=== PATIENT | female | born 1940 | race Caucasian/White ===

== ENCOUNTER 2019-06-19 05:03 | Inpatient (IN) ==
[2019-06-19] MEDS ORDERED: *HR* Promethazine 25 MG/ML VIAL IVP PRN (07:38)
[2019-06-19] MEDS ORDERED: Naloxone 0.4 MG/ML INJ IVP PRN (07:38)
[2019-06-19 16:55] LABS: Basophils % 0.1 %; Hematocrit 31.5 % (35.3-44.9); Hemoglobin 11.1 g/dL (11.5-15.4); Immature Granulocytes % 0.5 % (0-4); Lymphocytes # 1.2 K/mcL (0.6-4.6); Lymphocytes % 7.1 %; Mean Corpuscular HGB Conc 35.2 g/dL (31.6-35.5); Mean Corpuscular Hemoglobin 30.1 pg (28.0-33.3); Mean Corpuscular Volume 85.4 fL (83.0-100.0); Mean Platelet Volume 10.5 fL (9.4-12.4); Platelet Count 133 K/mcL (140-400); Red Blood Count 3.69 M/mcL (3.82-4.97); Segmented Neutrophils % 86.3 %
[2019-06-19 16:57] LABS: Neutrophils # 14.7 K/mcL (1.6-8.9)
[2019-06-19] MEDS: Pantoprazole 40 MG VIAL IVP SCH (17:16)
[2019-06-19 20:03] LABS: BUN/Creatinine Ratio 17 (6-26); Blood Urea Nitrogen 9 mg/dL (8-23); Calcium 8.5 mg/dL (8.6-10.3); Carbon Dioxide 26 mEq/L (23-29); Chloride 99 mEq/L (98-107); Glucose 111 mg/dL (70-105); Magnesium 1.4 mg/dL (1.6-2.6); Osmolality,Calculated 293 (280-300); Phosphorous 2.3 mg/dL (2.7-4.5); Potassium 3.3 mEq/L (3.5-5.1); Sodium 142 mEq/L (136-145); eGFR For African Americans > 60 (> 60); eGFR For Non-African Americans > 60 (> 60)
[2019-06-20] MEDS: Pantoprazole 40 MG VIAL IVP SCH ×2 (06:22→15:41)
[2019-06-20] MEDS ORDERED: *HR* Propofol 200 MG/20 ML VIAL IVP ONE (07:22)
[2019-06-20] MEDS ORDERED: Lidocaine -MPF 2% 2 ML VIAL ONE (07:22)
[2019-06-20 07:40] LABS: Hematocrit 29.4 % (35.3-44.9); Hemoglobin 9.9 g/dL (11.5-15.4)
[2019-06-20 07:55] LABS: BUN/Creatinine Ratio 21 (6-26); Blood Urea Nitrogen 9 mg/dL (8-23); Calcium 8.6 mg/dL (8.6-10.3); Carbon Dioxide 32 mEq/L (23-29); Chloride 99 mEq/L (98-107); Potassium 2.7 mEq/L (3.5-5.1); Sodium 143 mEq/L (136-145); eGFR For African Americans > 60 (> 60); eGFR For Non-African Americans > 60 (> 60)
[2019-06-20 08:37] LABS: Glucose 114 mg/dL (70-105); Osmolality,Calculated 296 (280-300)
[2019-06-20] MEDS ORDERED: *HR* EPINEPHrine 1 MG/10 ML SYRINGE INTRATRACH PRN (09:16)
[2019-06-20] MEDS ORDERED: *HR* EPINEPHrine 1 MG/10 ML SYRINGE ONE (09:22)
[2019-06-20] MEDS ORDERED: *HR* HYDROcodone/Acet 10/325 mg TABLET PO PRN ×2 (13:14→13:20)
[2019-06-20] MEDS: Gabapentin 400 MG CAPSULE PO SCH ×3 (15:41→21:56)
[2019-06-20 16:56] LABS: Hematocrit 30.3 % (35.3-44.9); Hemoglobin 10.2 g/dL (11.5-15.4)
[2019-06-20] MEDS: Famotidine 20 MG TABLET PO SCH (21:56)
[2019-06-21] MEDS: Pantoprazole 40 MG VIAL IVP SCH ×2 (05:25→17:47)
[2019-06-21 07:32] LABS: Basophils % 0.1 %; Eosinophils % 0.1 %; Hematocrit 29.4 % (35.3-44.9); Hemoglobin 10.2 g/dL (11.5-15.4); Immature Granulocytes % 0.7 % (0-4); Lymphocytes # 1.3 K/mcL (0.6-4.6); Lymphocytes % 14.3 %; Mean Corpuscular HGB Conc 34.7 g/dL (31.6-35.5); Mean Corpuscular Hemoglobin 30.4 pg (28.0-33.3); Mean Corpuscular Volume 87.8 fL (83.0-100.0); Mean Platelet Volume 10.6 fL (9.4-12.4); Monocytes # 0.6 K/mcL (0.0-1.3); Monocytes % 6.2 %; Neutrophils # 7.1 K/mcL (1.6-8.9); Platelet Count 110 K/mcL (140-400); Red Blood Count 3.35 M/mcL (3.82-4.97); Red Cell Distribution Width 13.8 % (11.5-14.5); Segmented Neutrophils % 78.6 %; White Blood Count 9.1 K/mcL (4.3-11.1)
[2019-06-21 07:53] LABS: BUN/Creatinine Ratio 18 (6-26); Blood Urea Nitrogen 7 mg/dL (8-23); Calcium 8.5 mg/dL (8.6-10.3); Carbon Dioxide 30 mEq/L (23-29); Chloride 98 mEq/L (98-107); Glucose 109 mg/dL (70-105); Osmolality,Calculated 291 (280-300); Sodium 141 mEq/L (136-145); eGFR For African Americans > 60 (> 60); eGFR For Non-African Americans > 60 (> 60)
[2019-06-21] MEDS ORDERED: Potassium Chloride Elixir 20 MEQ/15 ML UDC PO ONE (08:06)
[2019-06-21] MEDS: *HR* Acetylcysteine 20% 600 MG/3 ML ORAL SYRINGE PO SCH (08:48)
[2019-06-21] MEDS: FLUoxetine HCl 10 MG CAPSULE PO SCH (08:48)
[2019-06-21] MEDS: Gabapentin 400 MG CAPSULE PO SCH ×3 (08:48→20:31)
[2019-06-21] MEDS ORDERED: GI Cocktail 40 ML EACH PO ONE (11:47)
[2019-06-21 14:50] LABS: BUN/Creatinine Ratio 13 (6-26); Blood Urea Nitrogen 6 mg/dL (8-23); Calcium 8.7 mg/dL (8.6-10.3); Carbon Dioxide 30 mEq/L (23-29); Chloride 99 mEq/L (98-107); Glucose 101 mg/dL (70-105); Osmolality,Calculated 292 (280-300); Potassium 3.1 mEq/L (3.5-5.1); Sodium 142 mEq/L (136-145); eGFR For African Americans > 60 (> 60); eGFR For Non-African Americans > 60 (> 60)
[2019-06-21] MEDS: Famotidine 20 MG TABLET PO SCH (20:31)
[2019-06-21] MEDS ORDERED: Haloperidol Lactate 5 MG/ML VIAL IVP ONE (20:51)
[2019-06-22] MEDS: Pantoprazole 40 MG VIAL IVP SCH (06:20)
[2019-06-22 06:31] LABS: Hematocrit 30.5 % (35.3-44.9); Hemoglobin 10.4 g/dL (11.5-15.4)
[2019-06-22 06:55] LABS: BUN/Creatinine Ratio 15 (6-26); Blood Urea Nitrogen 6 mg/dL (8-23); Calcium 8.4 mg/dL (8.6-10.3); Carbon Dioxide 29 mEq/L (23-29); Chloride 102 mEq/L (98-107); Glucose 99 mg/dL (70-105); Osmolality,Calculated 292 (280-300); Potassium 2.9 mEq/L (3.5-5.1); Sodium 142 mEq/L (136-145); eGFR For African Americans > 60 (> 60); eGFR For Non-African Americans > 60 (> 60)
[2019-06-22] MEDS ORDERED: Potassium Chloride Elixir 20 MEQ/15 ML UDC PO ONE (06:58)
[2019-06-22 08:13] VITALS: BP 170/90
[2019-06-22] MEDS: *HR* Acetylcysteine 20% 600 MG/3 ML ORAL SYRINGE PO SCH (08:28)
[2019-06-22] MEDS: FLUoxetine HCl 10 MG CAPSULE PO SCH (08:28)
[2019-06-22] MEDS: Gabapentin 400 MG CAPSULE PO SCH (08:28)
== END 2019-06-22 10:50 | disposition home or self-care (01) | DRG 369 ==
LOC: 2ANU → SUATTDRO 06:32
PROVIDERS: ADMIT Internal Medicine; ATTEND Family Medicine